=== PATIENT | female | born 2000 | race Caucasian/White ===

== ENCOUNTER 2022-09-04 06:38 | Day surgery (SDC) | payer OTHER ==
[2022-09-02 11:06] LABS: HCG,QUAL RESULT NEGATIVE (NEGATIVE)
[~2022-09-04] VITALS: Ht 157.5 cm; Wt 55.8 kg
[~2022-09-04 06:38] MED LIST: ACETAMINOPHEN/CODEINE 300 MG-30 MG TABLET PO PRN; IBUPROFEN 800 MG TABLET PO PRN; MORPHINE 4 MG INJ. 4 MG/ML VIAL IVP PRN; ONDANSETRON HCL 4 MG/2 ML VIAL IVP PRN
[2022-09-04] MEDS ORDERED: ACETAMINOPHEN I.V. 1000 MG 100 ML IV ONE (07:55)
[2022-09-04] MEDS ORDERED: METOCLOPRAMIDE HCL 10 MG/2 ML VIAL IVP PRN (08:00)
[2022-09-04] MEDS ORDERED: MEPERIDINE HCL/PF 25 MG/ML DISP.SYRIN IVP PRN (08:00)
[2022-09-04] MEDS ORDERED: HYDROmorphone 1 MG/ML INJ. CARTRIDGE IVP PRN ×2 (08:00)
[2022-09-04] MEDS ORDERED: MIDAZOLAM HCL 2 MG/2 ML VIAL (VERSED) IVP PRN (08:00)
[2022-09-04] MEDS ORDERED: LR 1,000 ML IV SCH (08:00)
[2022-09-04] MEDS ORDERED: IBUPROFEN 800 MG TABLET PO PRN (08:30)
[2022-09-04] MEDS ORDERED: ACETAMINOPHEN/CODEINE 300 MG-30 MG TABLET PO PRN (08:30)
[2022-09-04] MEDS ORDERED: MORPHINE 4 MG INJ. 4 MG/ML VIAL IVP PRN (08:30)
[2022-09-04] MEDS ORDERED: ONDANSETRON HCL 4 MG/2 ML VIAL IVP PRN (08:30)
[2022-09-04] MEDS ORDERED: SUGAMMADEX SODIUM 200 MG/2 ML VIAL IV ONE (08:36)
[2022-09-04] MEDS ORDERED: BUPIVACAINE /PF 0.25% 30 ML VIAL INJ ONE (08:36)
[2022-09-04] MEDS ORDERED: DESFLURANE 15 MIN GAS INH ONE (08:36)
[2022-09-04] MEDS ORDERED: LR 1,000 ML IV.SOLN IV ONE (08:36)
[2022-09-04] MEDS ORDERED: DEXAMETHASONE SOD PHOSPHATE 4 MG/ML VIAL ONE (08:36)
[2022-09-04] MEDS ORDERED: PROPOFOL 200MG/ 20ML VIAL (DIPRIVAN) IV ONE (08:36)
[2022-09-04] MEDS ORDERED: ROCURONIUM BROMIDE 10 MG/ML (ZEMURON) ONE (08:36)
[2022-09-04] MEDS ORDERED: ONDANSETRON HCL 4 MG/2 ML VIAL ONE (08:36)
[2022-09-04] MEDS ORDERED: NS IRRIG SOLN 1000 ML IR ONE (08:36)
[2022-09-04] MEDS ORDERED: KETOROLAC TROMETHAMINE 30 MG VIAL ONE (08:36)
[2022-09-04] MEDS ORDERED: LIDOCAINE/EPI MPF 1%1:200000 30 ML VIAL ONE (08:36)
[2022-09-04] MEDS: HYDROmorphone 1 MG/ML INJ. CARTRIDGE ONE ×3 (08:43→09:10)
[2022-09-04] MEDS ORDERED: ACETAMINOPHEN/CODEINE 300 MG-30 MG TABLET ONE (10:22)
[2022-09-07 13:27] VITALS: BP_SYST 102; PULSE 71; RESP 16; TEMP 98.8; O2SAT 99
== END 2022-09-04 10:58 | disposition home or self-care (01) ==
LOC: SDS 06:38 → SMU 06:40 → SDS 10:58
PROVIDERS: ATTEND Obstetrics & Gynecology
DX: N83.202 Unspecified ovarian cyst, left side (principal); N83.201 Unspecified ovarian cyst, right side; R10.2 Pelvic and perineal pain; Z91.040 Latex allergy status
CPT/HCPCS: 84703; 58925; 88305; J3490 ×2; J1100; J1885; J2405; J2704; J1170; J7120; J0131